=== PATIENT | male | born 1955 | race Caucasian/White ===

== ENCOUNTER 2023-12-09 14:21 | Emergency (ER) | payer OTHER, SELFPAY ==
[2023-12-09 14:25] VITALS: BP 145/81
--- NOTE | 2023-12-09 14:53 | ED.GENMED ---
History of Present Illness
General
Chief Complaint: Musculo-Skeletal Complaint
Source: patient
Exam Limitations: none
Time Seen by Provider: 12/09/23 14:47
Nursing documentation reviewed up to this point in time: agreed with
History of Present Illness
History of Present Illness:
68 y/o M with h/o gout
anxiety, asthma
here with L ankle pain x 2 days
says when he stepped out of bed 2 mornings ago and had some pain in his left ankle
he was able to exercise (row and pilates)
he says that as the days have increased he got worse pain and thi smorning now with swelling
no significnat redness, fever, chills
pt feels better staying off of it so he used crutches
has h/o achilles rupture and surgery by dr. aleman in the past
no yari pain
pain is worse with dorsi and plantar flexion
no calf swelling or pain, redness
Past History
Past History
ED Past Medical History: Asthma and Other (Mild asthma)
ED Past Surgical History: Appendectomy, Cholecystectomy and Orthopedic (Left ankle surgery)
Social History
Tobacco: Non-smoker
Alcohol: Occasional
Personal:
Living: with family
Employment: Employed
Family History
Family History: Negative Diabetes, Hypertension or CAD
Review of Systems
Review of Systems
Allergies reviewed?: Yes
All Other Systems: Not applicable
Phy Exam
Physical Exam
Physical Exam:
GENERAL: Alert , in no apparent distress, comfortable at rest
HEAD: NCAT
CV: 2+ DP PULSES B/L
n
NEUROLOGICAL: Alert and oriented, no focal neuro deficits, , 5/5 strength, sensation intact, ambulation slight limp right leg
SKIN: Warm and dry, no signficant redness, rash
MUSCULOSKELETAL: mild swelling ankle lfet
no bony tendenrss
no achilles tenderness
mild pain with dorsi/flexion of ankle
no foot tenderness
mild anterior ankle tenderness;
calf nontender
knee normal
PSYCH: Normal and appropriate interaction.
Course
Orders/Labs/Results
Orders:
Orders
12/09/23 14:27
Ankle, left 3 view CR [CR Ankle - Left Min 3 Views ] Urgent
Comment:
Reason For Exam: pain and swelling, denies injury
12/09/23 15:16
Acetaminophen [Tylenol] 650 mg PO NOW STA
Colchicine 0.6 mg PO NOW STA
Vital Signs
Initial and Last Documented VS:
Initial Vital Signs
Temp Pulse Resp BP Pulse Ox
97.5 F 71 18 145/81 94
12/09/23 14:25 12/09/23 14:25 12/09/23 14:25 12/09/23 14:25 12/09/23 14:25
Last Documented Vital Signs
Temp Pulse Resp BP Pulse Ox
97.5 F 69 16 141/78 98
12/09/23 14:25 12/09/23 15:29 12/09/23 15:29 12/09/23 15:29 12/09/23 15:29
MDM/Problems Addressed
Differential Diagnosis Includes:
sprain, tendintiis, arthritis, gout
MDM/Problems Addressed:
68 y/o M with h/o gout in [facility] in the past
here with ankle pain x 2 days
is very active at baseline
no trauma
just pain with flexion mal and plantar and then today with some swelling
no redness but mild tednress
achillesn previous repair, notender
normal pulse
xrays indep reveiewd and neg
pt is saying marcy tthe pain is reminding him of hi s gout
he will try colchicine fo ra few dyas
f/u ortho
return precatuions
no h/o kidney disease
*Critical Care Note
Total Time (30-74mins, 75-104mins- exclusive of procedures): Not Applicable
ED Attending Note
-
Portions of this chart may have been created with voice recognition software.� Occasional wrong word or��sound alike� substitutions may have occurred due to the inherent limitations of voice recognition software.
Discharge Plan
Departure
Patient Disposition: Home (Routine Discharge)
Date of Disposition: 12/09/23
Time of Disposition: 15:15
Patient with high blood pressure during this ER visit?: No
Covid-19: Not Applicable
Discharge Problem:
Ankle pain
Instructions: Gout ED
Prescriptions:
New
colchicine 0.6 mg tablet
0.6 mg PO DAILY PRN (Reason: ankle pain) Qty: 7 0RF
No Action
paroxetine HCl 10 MG tablet
5 mg PO DAILY
ibuprofen [Advil] 200 MG tablet
400 mg PO PRN PRN (Reason: pain)
Referrals:
Yakov Alvarado I., DO [Family Provider] -
Bo Aleman MD [Active] - Follow up in 5-7 days
Activity Restrictions/Additional Instructions:
Your ankle x-ray appears normal. This could be a tendinitis or even an early gout flare. Try the colchicine once a day as needed for the next 5-7 days for pain. You can also do Tylenol 653 times a day. Wear an Huang wrap, use crutches as needed
for partial weightbearing as tolerated or you can use a boot. Please make sure to watch her skin to be sure that it is not starting to become very red, return for any fever, severe pain, limited range of motion, streaking redness or pain up your
calf, foot drop or numbness or any concerns. Otherwise see either your orthopedist or your family doctor next week
Interventions
Interventions:
*Risk Screen - Suicide Last Done: 12/09/23 14:25
*General Assessment Last Done: 12/09/23 14:25
*Neglect/Abuse Screening Last Done: 12/09/23 14:25
ED- Fall Risk Assessment Last Done: 12/09/23 15:29
*ED COVID-19 Vaccine History Last Done: 12/09/23 15:29
*Nursing Disposition Last Done: 12/09/23 15:29
ED-Musculoskeletal Assessment Last Done: 12/09/23 14:52
Discharge Date and Time
Discharge Date/Time: 12/09/23 15:30
Print Language: AZERI
[2023-12-09] MEDS: TYLENOL 650 MG PO (15:24)
[2023-12-09] MEDS: COLCHICINE 0.6 MG PO (15:24)
[2023-12-09 15:29] VITALS: BP 141/78
== END 2023-12-09 15:30 | disposition home or self-care (01) ==
LOC: EMR 14:21
PROVIDERS: EMERGENCY PHYSICIAN Emergency Medicine; FAMILY PHYSICIAN Internal Medicine
DX: M25.572 Pain in left ankle and joints of left foot (principal); F41.9 Anxiety disorder, unspecified; J45.909 Unspecified asthma, uncomplicated; Z90.49 Acquired absence of other specified parts of digestive tract
CPT/HCPCS: 99283; 73610

== ENCOUNTER → 2025-05-23 09:37 | Outpatient (REF) | payer BC, SELFPAY | LOC: RAD 09:37 | PROVIDERS: ATTENDING PHYSICIAN Nurse Practitioner Adult Health | DX: M79.675 Pain in left toe(s) (principal) | CPT/HCPCS: 73660 ==